=== PATIENT | male | born 1985 ===

== ENCOUNTER 2019-07-13 14:51 | Inpatient (IN) | payer BC, OTHER, SELFPAY ==
[~2019-07-13 14:51] MED LIST: Aspirin Chewable 81 MG TAB ONE; Heparin 10,000 UNITS/ 10 ML VIAL ONE; Iopamidol 370 76% 100 ML VIAL ONE; Iopamidol 370 76% 50 ML VIAL FS ONE; Nitroglycerin 0.4 MG TAB (25 Tab Bottle) ONE; Sodium Chloride 0.9% 1,000 ML BAG ONE
[2019-07-13] MEDS ORDERED: Heparin (Artline) 1,000 ML ONE (15:00)
[2019-07-13] MEDS ORDERED: Lidocaine 1% (PF) 30 ML VIAL ONE (15:00)
[2019-07-13] MEDS ORDERED: Midazolam HCl 2 mg/2 ml Vial ONE (15:20)
[2019-07-13] MEDS ORDERED: Nitroglycerin 100MG/250ML BOT 250 ML ONE (15:24)
[2019-07-13] MEDS ORDERED: Heparin 10,000 UNITS/1 ML VIAL ONE ×2 (15:32→17:04)
[2019-07-13] MEDS ORDERED: Atropine Sulfate 1 mg/10 ml Syringe ONE (15:33)
[2019-07-13] MEDS ORDERED: Aggrastat 12.5 MG/250 ML 250 ML ONE (15:39)
[2019-07-13] MEDS ORDERED: Fentanyl 100 MCG/2 ML VIAL ONE (15:47)
[2019-07-13] MEDS ORDERED: Heparin (Artline) 500 ML ONE (15:51)
[2019-07-13] MEDS ORDERED: TICAGRELOR 90 MG TABLET ONE (15:59)
[2019-07-13 18:05] VITALS: BMI 31.7
[2019-07-13] MEDS ORDERED: traMADol HCl 50 MG TAB PO PRN (18:22)
[2019-07-13] MEDS ORDERED: Milk Of Magnesia 30 ML UDCUP PO PRN (18:22)
[2019-07-13] MEDS ORDERED: Acetaminophen/Codeine 30-300mg Tablet PO PRN (18:22)
[2019-07-13] MEDS ORDERED: TICAGRELOR 90 MG TABLET PO SCH (18:30)
[2019-07-13] MEDS ORDERED: Aggrastat 12.5 MG/250 ML 250 ML IVPB SCH (18:30)
[2019-07-13 18:35] LABS: #Basophils 0.1 thou/uL (0.0-0.2); #Eosinphils 0.2 thou/uL (0.0-0.7); #Lymphocytes 3.7 thou/uL (1.20-3.40); #Monocytes 0.8 thou/uL (0.11-0.59); #Neutrophils 7.8 thou/uL (1.40-6.50); %Basophils 0.6 % (0.0-1.0); %Eosinophils 1.8 % (0.0-10.0); %Lymphocytes 29.4 % (21.0-51.0); %Monocytes 6.1 % (0.0-10.0); %Neutrophils 62.1 % (42.0-75.0); Hemoglobin 16.4 g/dL (14.0-18.0); Mean Corpuscular HGB CONC 33.6 g/dL (32.0-36.0); Mean Corpuscular Hemoglobin 30.2 pg (27.0-31.0); Mean Corpuscular Volume 89.8 fL (78.0-98.0); Platelet Count 285 thou/uL (130-400); RBC Distribution Width 12.2 % (11.5-14.5); Red Blood Cell (RBC) Count 5.44 mill/uL (4.70-6.10); White Blood Cell (WBC) Count 12.5 thou/uL (4.8-10.8)
[2019-07-13] MEDS ORDERED: Heparin 5,000 UNITS/ML VIAL SLOW IVP SCH (18:45)
[2019-07-13 18:58] LABS: Anion Gap 14 mmol/L (10-20); BUN (Urea Nitrogen) 11 mg/dL (8.9-20.6); Calc. Creatinine Clearance 180 mL/min (70-130); Calcium 8.8 mg/dL (7.8-10.44); Carbon Dioxide 19 mmol/L (22-29); Chloride 109 mmol/L (98-107); Estimated GFR-MDRD Greater than 90; Glucose 91 mg/dL (70-105); Potassium 3.9 mmol/L (3.5-5.1); Sodium 138 mmol/L (136-145)
[2019-07-13] MEDS ORDERED: Aspirin 81 mg Enteric Coated Tablet PO SCH (19:00)
[2019-07-13] MEDS ORDERED: Aspirin Chewable 81 MG TAB PO SCH (19:00)
[2019-07-13] MEDS: Sodium Chloride 0.9% 1,000 ML IV SCH (19:00)
[2019-07-13 19:19] LABS: Troponin I 5.979 ng/mL (< 0.028)
[2019-07-13] MEDS: TICAGRELOR 90 MG TABLET PO SCH (19:52)
[2019-07-13] MEDS: Atorvastatin Calcium 40 MG TAB PO SCH (19:52)
--- NOTE | 2019-07-14 00:22 | HP ---
REASON FOR ADMISSION: Acute inferior myocardial infarction. HISTORY OF PRESENT ILLNESS: Mr. Tinsley is a pleasant 34-year-old gentleman. The patient was at work when he had the sudden onset of severe pain across his chest. It was very intense and they brought him to the emergency room on an emergency basis. EKG revealed an acute inferior myocardial infarction and I was consulted. The patient states he has never had pain like this before. He has had occasional chest pain, but nothing like this. In fact, he was working vigorously the day before this without any difficulty. PAST MEDICAL HISTORY: Negative for any cardiac operations or procedures. SOCIAL HISTORY: Did smoke on a daily basis up until this episode. The patient's mother tell me that the patient has had some hypertension in the past. He was on amlodipine at one time. REVIEW OF SYSTEMS: CONSTITUTIONAL: He is having severe weakness and fatigue, and was in severe chest pain, lying very still. VISION: No changes. HEARING: No changes. PULMONARY: No cough or wheezing. GASTROINTESTINAL: No nausea, vomiting, or diarrhea. SKIN: No rashes. NEUROLOGIC: No unilateral weakness or numbness. PSYCHIATRIC: No unusual depression or anxiety. HEMATOLOGIC: No unusual bruising. GENITOURINARY: No burning with urination. FAMILY HISTORY: Unknown at the time of admission. PHYSICAL EXAMINATION: GENERAL: Very ill-appearing gentleman, lying very still, pale, mildly diaphoretic. VITAL SIGNS: Blood pressure was 110 systolic, pulse is in the 60 to 70 range. HEENT: Eyes, sclerae nonicteric. Mouth, mucous membranes moist. NECK: Supple. No lymphadenopathy. LUNGS: Clear. CARDIAC: Normal S1, normal S2. There is no murmur, rub, or gallop. ABDOMEN: Soft and nontender. No hepatosplenomegaly. EXTREMITIES: Warm and dry. SKIN: As mentioned with minimally diaphoretic, but extremities are warm and dry. The peripheral pulses were intact. The electrocardiogram showed acute myocardial infarction with ST elevation in the inferior leads with small Q-wave in lead 3. There is ST elevation in 2, 3, and AVF. There is no laboratory available at the time of decision making. ASSESSMENT: 1. Acute inferior myocardial infarction. 2. Unknown cholesterol status. 3. Remote history of hypertension. PLAN: Discussed with the patient today that he is having an acute myocardial infarction. Recommend emergency cardiac catheterization. Discussed risks of stroke, heart attack, iodine allergy, loss of blood supply to leg or kidney, stent thrombosis, stent restenosis. The patient understood and wished to proceed. He also understands he would be a high risk for not to proceed with procedure as his prognosis could be improved. If he had an occluded vessel, which could be hopefully opened successfully. His prognosis will be better with intervention without emergency recommendations and preparations were made. He was taken to the catheterization lab, where he indeed was found to have an occluded right coronary artery which was stented. Please see the notes concerning that. Job ID: [id number]
[2019-07-14 00:33] LABS: #Eosinphils 0.4 thou/uL (0.0-0.7); #Monocytes 0.9 thou/uL (0.11-0.59); #Neutrophils 8.2 thou/uL (1.40-6.50); %Basophils 0.4 % (0.0-1.0); %Eosinophils 3.3 % (0.0-10.0); %Lymphocytes 17.7 % (21.0-51.0); %Monocytes 7.6 % (0.0-10.0); %Neutrophils 71.1 % (42.0-75.0); Hemoglobin 14.8 g/dL (14.0-18.0); Mean Corpuscular HGB CONC 33.7 g/dL (32.0-36.0); Mean Corpuscular Hemoglobin 29.7 pg (27.0-31.0); Mean Corpuscular Volume 88.2 fL (78.0-98.0); Mean Platelet Volume 8.1 fL (7.4-10.4); Platelet Count 254 thou/uL (130-400); RBC Distribution Width 12.3 % (11.5-14.5); Red Blood Cell (RBC) Count 4.96 mill/uL (4.70-6.10); White Blood Cell (WBC) Count 11.5 thou/uL (4.8-10.8)
[2019-07-14 00:59] LABS: Troponin I 28.439 ng/mL (< 0.028)
[2019-07-14] MEDS: Sodium Chloride 0.9% 1,000 ML IV SCH (02:28)
[2019-07-14 03:39] LABS: #Eosinphils 0.4 thou/uL (0.0-0.7); #Lymphocytes 2.2 thou/uL (1.20-3.40); #Monocytes 0.8 thou/uL (0.11-0.59); #Neutrophils 7.8 thou/uL (1.40-6.50); %Basophils 0.3 % (0.0-1.0); %Eosinophils 3.7 % (0.0-10.0); %Lymphocytes 19.2 % (21.0-51.0); %Monocytes 6.9 % (0.0-10.0); %Neutrophils 69.8 % (42.0-75.0); Hemoglobin 14.6 g/dL (14.0-18.0); Mean Corpuscular HGB CONC 34.1 g/dL (32.0-36.0); Mean Corpuscular Hemoglobin 30.2 pg (27.0-31.0); Mean Corpuscular Volume 88.6 fL (78.0-98.0); Mean Platelet Volume 8.4 fL (7.4-10.4); Platelet Count 249 thou/uL (130-400); RBC Distribution Width 12.2 % (11.5-14.5); Red Blood Cell (RBC) Count 4.84 mill/uL (4.70-6.10); White Blood Cell (WBC) Count 11.2 thou/uL (4.8-10.8)
[2019-07-14 04:00] LABS: ALT (SGPT) 32 U/L (8-55); AST (SGOT) 95 U/L (5-34); Albumin 3.8 g/dL (3.5-5.0); Alkaline Phosphatase 50 U/L (40-110); Anion Gap 11 mmol/L (10-20); BUN (Urea Nitrogen) 12 mg/dL (8.9-20.6); Bilirubin, Total 0.3 mg/dL (0.2-1.2); Calc. Creatinine Clearance 174 mL/min (70-130); Calcium 8.5 mg/dL (7.8-10.44); Carbon Dioxide 22 mmol/L (22-29); Cardiac Risk 4.8 (Less than 4.5); Chloride 111 mmol/L (98-107); Cholesterol 134 mg/dl (< 200 Desired); Estimated GFR-MDRD Greater than 90; Globulin 2.2 g/dL (2.4-3.5); Glucose 109 mg/dL (70-105); HDL Cholesterol 28 mg/dL (>60 Neg Risk); LDL Cholesterol, Calculated 77 mg/dL; Potassium 3.5 mmol/L (3.5-5.1); Sodium 140 mmol/L (136-145); Triglycerides 144 mg/dL (Less than 150)
[2019-07-14] MEDS ORDERED: Potassium Chloride 20 MEQ TAB PO SCH (08:30)
[2019-07-14] MEDS: Aspirin 81 mg Enteric Coated Tablet PO SCH (08:55)
[2019-07-14] MEDS: TICAGRELOR 90 MG TABLET PO SCH ×2 (08:56→20:59)
[2019-07-14] MEDS: Carvedilol 3.125 MG TAB PO SCH ×2 (08:56→21:00)
[2019-07-14] MEDS ORDERED: Lisinopril 2.5 MG TAB PO SCH (09:00)
--- NOTE | 2019-07-14 09:38 | PRG ---
DATE OF SERVICE: 07/14/2019 SUBJECTIVE: Mr. Tinsley is doing well. No chest pain or pressure. Feels much better today. OBJECTIVE: VITAL SIGNS: His blood pressure earlier was 150/89, but the more recent blood pressure was 125 systolic, pulse is 84. LUNGS: Clear. CARDIAC: Normal S1, normal S2. ABDOMEN: Soft, nontender. EXTREMITIES: There is no edema. Right groin looks normal. No hematoma. PERTINENT LABORATORY DATA: Potassium is 3.5, creatinine is 0.89. Troponin was 28.43. EKG shows some small Q waves in the inferior leads. ASSESSMENT: 1. Status post inferior myocardial infarction. 2. Surprisingly, the patient's cholesterol is normal with total of 134, LDL 77. He did receive one dose of statin last night. 3. Mild hypokalemia. PLAN: 1. Replete potassium. 2. Aspirin and Brilinta. 3. Statin. 4. TRUNG inhibitor and beta-blockers all will be administered. 5. Echocardiogram tomorrow. Job ID: [id number]
[2019-07-14 09:54] LABS: Critical Call Chem Troponin I RESULT DECREASING; Troponin I 13.119 ng/mL (< 0.028)
[2019-07-14] MEDS ORDERED: Enoxaparin Sodium 40 MG/0.4 ML SYRINGE SC SCH ×2 (10:00→12:00)
--- NOTE | 2019-07-14 12:10 | CON ---
DATE OF CONSULTATION: 07/14/2019 SERVICE: Pulmonary Medicine. REASON FOR CONSULTATION: ICU patient. HISTORY OF PRESENT ILLNESS: The patient is a 34-year-old white male with past medical history significant for hypertension. Otherwise, he is in his usual state of health. He presented to the emergency department after 20 minutes onset of epigastric discomfort that crept up into his chest, neck, bilateral shoulders, and right arm. It became severe and he got diaphoretic and short of breath. He presented to the emergency department and was discovered to have an ST-elevation myocardial infarction. He is emergently taken for cardiac catheterization, where RCA lesion was identified. A stent was placed across the distal RCA lesion. This was drug-eluting. Immediately, the patient had resolution in most of his respiratory and pain symptoms. He was recovering in the ICU overnight and there were no significant events on telemetry monitoring. He denies any current fevers, chills, nausea, vomiting, or diarrhea. Prior to this event, he indicates he was in his usual state of health. PAST MEDICAL HISTORY: 1. Coronary artery disease, status post PA. 2. Hypertension. PAST SURGICAL HISTORY: None. ALLERGIES: NO KNOWN DRUG ALLERGIES. HE IS ALLERGIC TO PEANUTS. MEDICATIONS: List of his inpatient medications was reviewed. No specific updates were made. SOCIAL HISTORY: He has a [id number] history of smoking. He denies any significant alcohol use. He denies any illicit drugs. He has no exposure to chemicals, dust, asbestos, or tuberculosis. FAMILY HISTORY: Noncontributory. He does not have any known early coronary artery disease in primary family members. REVIEW OF SYSTEMS: General, head, ears, eyes, nose, throat, cardiovascular, respiratory, GI, , musculoskeletal, neurologic, and skin is negative except as mentioned in the HPI. PHYSICAL EXAMINATION: VITAL SIGNS: Afebrile; pulse 77; blood pressure 150/89; respirations 15; and saturation 97%, currently on room air. GENERAL: The patient is awake and alert, in no apparent distress. LUNGS: Wonderful air entry with no prolonged expiratory phase or wheezing. Minimal dependent crackles are noted. HEART: Normal rate. Regular. ABDOMEN: Soft, nontender, and nondistended. Bowel sounds are positive. MUSCULOSKELETAL: No cyanosis or clubbing. There is no pitting in bilateral lower extremities. LABORATORY DATA: WBC downtrending to 11.2, hemoglobin 14.6, and platelets 250, 000. Basic metabolic profile and liver function studies are essentially unremarkable. Troponin peaked at 28 and is now downtrending to 13. ASSESSMENT: 1. ST elevation myocardial infarction, status post percutaneous coronary intervention with drug-eluting stents to right coronary artery, postop day #1. 2. Hypertension. DISCUSSION AND PLAN: The patient is being transitioned out of the ICU to the telemetry unit. He has no ongoing requirements for respiratory or Critical Care opinion. As such, I will sign off. Please call with additional questions or concerns through time. 50 minutes have been devoted to this patient in various activities. I personally reviewed all imaging studies and laboratory data noted within this document. For fifty percent of this time, I was interacting with the patient at the bedside or coordinating care with the care team. For the remainder of the time I was immediately available to the patient in the hospital unit. Job ID: [id number] MTDD
[2019-07-14] MEDS: Atorvastatin Calcium 40 MG TAB PO SCH (20:59)
[2019-07-15 00:49] LABS: #Eosinphils 0.5 thou/uL (0.0-0.7); #Lymphocytes 2.3 thou/uL (1.20-3.40); %Basophils 0.4 % (0.0-1.0); %Eosinophils 5.1 % (0.0-10.0); %Lymphocytes 23.6 % (21.0-51.0); %Monocytes 10.1 % (0.0-10.0); %Neutrophils 60.7 % (42.0-75.0); Hemoglobin 14.7 g/dL (14.0-18.0); Mean Corpuscular Hemoglobin 30.1 pg (27.0-31.0); Mean Corpuscular Volume 88.6 fL (78.0-98.0); Mean Platelet Volume 8.1 fL (7.4-10.4); Platelet Count 240 thou/uL (130-400); RBC Distribution Width 12.2 % (11.5-14.5); Red Blood Cell (RBC) Count 4.87 mill/uL (4.70-6.10); White Blood Cell (WBC) Count 9.8 thou/uL (4.8-10.8)
[2019-07-15 04:27] LABS: Anion Gap 11 mmol/L (10-20); BUN (Urea Nitrogen) 9 mg/dL (8.9-20.6); Calc. Creatinine Clearance 184 mL/min (70-130); Calcium 8.7 mg/dL (7.8-10.44); Carbon Dioxide 22 mmol/L (22-29); Chloride 110 mmol/L (98-107); Estimated GFR-MDRD Greater than 90; Glucose 91 mg/dL (70-105); Potassium 4.3 mmol/L (3.5-5.1); Sodium 139 mmol/L (136-145)
[2019-07-15 06:33] LABS: #Eosinphils 0.4 thou/uL (0.0-0.7); #Lymphocytes 1.7 thou/uL (1.20-3.40); #Monocytes 0.9 thou/uL (0.11-0.59); %Basophils 0.5 % (0.0-1.0); %Eosinophils 4.5 % (0.0-10.0); %Lymphocytes 18.9 % (21.0-51.0); %Monocytes 9.5 % (0.0-10.0); %Neutrophils 66.5 % (42.0-75.0); Hemoglobin 14.8 g/dL (14.0-18.0); Mean Corpuscular Volume 88.4 fL (78.0-98.0); Platelet Count 236 thou/uL (130-400); RBC Distribution Width 12.1 % (11.5-14.5); Red Blood Cell (RBC) Count 4.94 mill/uL (4.70-6.10)
[2019-07-15] MEDS: Carvedilol 6.25 MG TAB PO SCH ×2 (08:33→17:08)
[2019-07-15] MEDS: Aspirin 81 mg Enteric Coated Tablet PO SCH (08:34)
[2019-07-15] MEDS: TICAGRELOR 90 MG TABLET PO SCH (08:35)
[2019-07-15] MEDS ORDERED: Lisinopril 5 MG TAB PO SCH (09:00)
[2019-07-15] MEDS ORDERED: Enoxaparin Sodium 40 MG/0.4 ML SYRINGE SC SCH ×2 (09:00→16:00)
--- NOTE | 2019-07-15 11:53 | ULT ---
Exam: Right groin ultrasound HISTORY: Right groin tenderness. Status post cardiac catheterization 2 days ago. COMPARISON: none TECHNIQUE: Grayscale, color flow, Doppler imaging and spectral wave muscle from the right groin FINDINGS: The right common femoral artery and femoral vein are patent. No evidence of pseudoaneurysm Enlarged right inguinal lymph node with a preserved fatty hilum measures 2.5 cm in maximum dimension. Additional smaller lymph nodes are noted IMPRESSION: 1. Incidental enlarged right inguinal lymph nodes. Correlate for infectious or inflammatory process 2. No evidence of pseudoaneurysm.
[2019-07-15 13:18] LABS: #Basophils 0.1 thou/uL (0.0-0.2); #Eosinphils 0.5 thou/uL (0.0-0.7); #Lymphocytes 1.9 thou/uL (1.20-3.40); #Neutrophils 7.2 thou/uL (1.40-6.50); %Basophils 0.6 % (0.0-1.0); %Eosinophils 4.4 % (0.0-10.0); %Lymphocytes 17.7 % (21.0-51.0); %Neutrophils 68.3 % (42.0-75.0); Hemoglobin 15.2 g/dL (14.0-18.0); Mean Corpuscular HGB CONC 33.2 g/dL (32.0-36.0); Mean Corpuscular Hemoglobin 29.3 pg (27.0-31.0); Mean Corpuscular Volume 88.4 fL (78.0-98.0); Mean Platelet Volume 8.2 fL (7.4-10.4); Platelet Count 263 thou/uL (130-400); White Blood Cell (WBC) Count 10.5 thou/uL (4.8-10.8)
[2019-07-15 15:37] VITALS: BP 118/70; TEMP 98.2
[2019-07-15] MEDS ORDERED: Nitroglycerin 0.4 MG TAB (25 Tab Bottle) SL PRN (17:52)
[2019-07-15] MEDS ORDERED: Rosuvastatin 20 MG TAB PO SCH (21:00)
--- NOTE | 2019-07-15 21:25 | DIS ---
DATE OF ADMISSION: 07/13/2019 DATE OF DISCHARGE: 07/15/2019 FINAL DIAGNOSES: 1. Status post acute inferior myocardial infarction. 2. Previous history of hypertension in the remote past. 3. Tobacco use, previous. The patient stopped during this admission. PROCEDURES DURING THIS HOSPITALIZATION: Emergency left heart catheterization and intracoronary stent implantation, echocardiography. MEDICINES: At the time of discharge: 1. Lisinopril 5 mg once a day. 2. Coreg 6.25 mg twice a day. 3. Crestor 20 mg in the evening. 4. Aspirin 81 mg a day. 5. Brilinta 90 mg twice a day. HOSPITAL COURSE: Mr. Tinsley is a 34-year-old gentleman who presented to the hospital with severe substernal chest pain radiating across his chest. EKG revealed inferior myocardial infarction. The patient was taken to the cardiac catheterization lab in an emergency basis. The left main was normal, LAD normal, circumflex normal. Right coronary artery was occluded proximal to the posterior descending artery. Initially, it was thought that there was potentially much in the way of thrombus. A thrombectomy catheter was placed, but very little thrombus was obtained. Ultimately, the area was dilated and looked like the lesion was just proximal to the posterior descending artery and a lesion just after the posterior descending artery. A stent was placed, drug-eluting stent, 3.0 x 20 mm stent was positioned and deployed crossing the posterior descending artery. The proximal area was postdilated with a high-pressure 3.5 mm balloon. Prior to the stent deployment, there was a 3 mm balloon placed in the ostium of the posterior descending artery. It looks like there is a lot of thrombus there, but no definitive stenosis. At the conclusion of the procedure, the patient was pain free, doing much better. Pertinent laboratory done in his hospitalization; hemoglobin is 15.2 this morning. His peak troponin was 28.439, which is relatively low rise for ST-elevation infarction. His LDL cholesterol was only 77 that was measured the morning after the DE and after one dose of statin. His potassium is 4.3 this morning. The patient was released home with the above listed medicines, to be seen in the office. The ejection fraction had normalized to 50% to 55% on echocardiogram. This morning, it was 40% in the manufacturing lab technician. The patient will be seen in the office. It is stressed absolutely essentially not to smoke. Job ID: [id number]
== END 2019-07-15 18:45 | disposition home or self-care (01) | DRG 247 ==
LOC: ERS 14:51 → CCU 15:09 → 2NO 07-14 20:05
PROVIDERS: ADMIT Internal Medicine Cardiovascular Disease; ATTEND Internal Medicine Cardiovascular Disease
PROC: 027034Z Dilation of Coronary Artery, One Artery with Drug-eluting Intraluminal Device, Percutaneous Approach (ICD-10-PCS; principal; 2019-07-13)
PROC: 4A023N7 Measurement of Cardiac Sampling and Pressure, Left Heart, Percutaneous Approach (ICD-10-PCS; 2019-07-13)
PROC: B2151ZZ Fluoroscopy of Left Heart using Low Osmolar Contrast (ICD-10-PCS; 2019-07-13)
PROC: B2111ZZ Fluoroscopy of Multiple Coronary Arteries using Low Osmolar Contrast (ICD-10-PCS; 2019-07-13)
DX: I21.19 ST elevation (STEMI) myocardial infarction involving other coronary artery of inferior wall (principal); I10 Essential (primary) hypertension; Z87.891 Personal history of nicotine dependence; E87.6 Hypokalemia
CPT/HCPCS: 36415; 76942; 80048; 80053; 80061; 84484; 85025; 85347; 92941; 92977; 93005; 93010; 93306; 93458; 93798; 93926; 96374; 99152; 99153; C1725; C1757; C1769; C1874; C1887; C9606; J0461; J1644; J1650; J2001; J2250; J3010; J3246; J7050; Q9967